=== PATIENT | male | born 1995 | race Caucasian/White ===

== ENCOUNTER 2022-02-03 03:57 | Emergency (ER) | payer OTHER, SELFPAY ==
[2022-02-03 04:11] VITALS: BP 135/80; PULSE 86; RESP 18; TEMP 36.6; O2SAT 97
--- NOTE | 2022-02-03 04:21 | DI.RAD.S_ITS ---
PROCEDURE: XR FINGER RT MIN 2V INDICATIONS: cut tip of thumb off on chain TECHNIQUE: AP hand, 2 views of the right 1st finger(s) acquired. COMPARISON: None. FINDINGS: Bones: No fractures or dislocations. No suspicious bony lesions. No radiodense foreign body. Soft tissues: No suspicious soft tissue calcifications. IMPRESSION: No fracture. No osseous lesion. If symptoms and/or clinical suspicion for pathology persists, further assessment with repeat radiographs (7-10 days) or advanced imaging (e.g. CT, MRI or bone scan) should be considered. Dictated by: Pat Mccord MD, PhD on 02/03/2022 at 8:31 Approved by: Pat Mccord MD, PhD on 02/03/2022 at 8:31
[2022-02-03] MEDS: TET,DIPH,PERTUSS(ACELL),VAC/PF 0.5 ML SYRINGE IM (04:43)
--- NOTE | 2022-02-03 04:57 | ED.WOUNDLAC ---
HPI - Wound/Laceration General Chief Complaint: Wound/Laceration Stated Complaint: cut right thumb Time Seen by Provider: 02/03/22 04:52 Source: patient Mode of arrival: Ambulatory History of Present Illness HPI narrative: Patient here for right thumb injury at work. Patient cut right thumb caught in a chain and sprocket device. Has partial amputation the distal quarter the fingernail and thumb pad. Denies any other injuries. Tetanus shot given here. Related Data Previous Rx's Medication Instructions Recorded cephalexin 500 mg capsule 500 mg PO QID #20 caps 02/03/22 hydrocodone 5 mg-acetaminophen 325 1 tab PO Q6H PRN pain #10 tabs 02/03/22 mg tablet ibuprofen 600 mg tablet 600 mg PO Q6H PRN fever or pain 02/03/22 #24 tabs ondansetron 4 mg disintegrating 4 mg PO Q8H PRN nausea and 02/03/22 tablet vomiting #10 tabs Allergies Allergy/AdvReac Type Severity Reaction Status Date / Time No Known Drug Allergies Allergy Verified 02/03/22 04:23 Review of Systems Review of Systems Narrative: GENERAL: Denies chills, fatigue, malaise, fever, sweats. HEENT: Denies sinus pain, ear pain, sore throat RESPIRATORY: Denies dyspnea, cough CARDIOVASCULAR: Denies chest pain, palpitations GASTROINTESTINAL: Denies nausea, vomiting, abdominal pain : Denies dysuria, frequency, hematuria MUSCULOSKELETAL: Positive for muscle or bony pain SKIN: Denies rash, skin lesions NEUROLOGIC: Denies weakness, numbness ROS Unobtainable: All systems reviewed & are unremarkable except as noted in HPI and below Patient History Social History Smoking Status: Never smoker Smoking Status: Never smoker alcohol intake frequency: a few times a week Substance Use Type: does not use Exam Narrative Exam Narrative: GENERAL: in no distress, not toxic not dyspneic HEAD: Normocephalic. EYES: Pupils equal round EXTREMITIES: Examination of right hand. There is a defect/ deformity to the distal quarter of the thumbnail and thumb pad. Bleeding is controlled. Base visualized. No foreign body. No bony exposure seen. No active bleeding. Nontender MCP and IP joints. NEURO: AOx4. SKIN: Warm and dry PSYCH: Not anxious, is cooperative Initial Vital Signs Initial Vital Signs: Vital Signs Temperature 98 F 02/03/22 04:11 Pulse Rate 86 02/03/22 04:11 Respiratory Rate 18 02/03/22 04:11 Blood Pressure 135/80 02/03/22 04:11 Pulse Oximetry 97 02/03/22 04:11 Oxygen Delivery Method 02/03/22 04:11 Course Course Course Narrative: No new issues during course of stay. Orders Ordered: Discontinued Medications Cephalexin HCl (Cephalexin 250 Mg Capsule) 500 mg PO NOW ONE Stop: 02/03/22 05:03 Last Admin: 02/03/22 05:12 Dose: 500 mg Documented By: TED Diphtheria/Tetanus/Acell Pertussis (Tet,Diph,Pertuss(Acell),Vac/Pf 0.5 Ml Syringe) 0.5 ml IM .ONCE ONE Stop: 02/03/22 04:23 Last Admin: 02/03/22 04:43 Dose: 0.5 ml Documented By: TED Reevaluation(s) Reevaluation #1: Pain is controlled. Reviewed with patient results of x-rays. wound is not amenable to suturing, essentially has partial amputation. Time: 05:01 Vital Signs Vital signs: Vital Signs - 8 hr 02/03/22 04:11 Temperature 98 F Pulse Rate 86 Respiratory Rate 18 Blood Pressure 135/80 Pulse Oximetry 97 Oxygen Delivery Method Room Air MDM - Wound/Laceration Differential Diagnosis Differential diagnosis: Likely laceration, avulsion of skin and other ( Finger fracture) Imaging Data Extremity x-ray #1: My Impression: No acute bony injury of the thumb. There is soft tissue defect at the distal finger pad Radiologist's Impression: read by overnight radiologist impression laceration of the distal aspect of the 1st digit without fracture or foreign body. MDM Narrative Medical decision making narrative: appropriate for discharge home. Patient essentially has partial amputation of the thumb. L and I form not used because self-insured. the APF form are completed. Pain is controlled. Antibiotics started in the department. Appropriate for prescribed pain medication for severe degree of injury Discharge Plan Departure Patient Disposition: Home Clinical Impression: Avulsion of skin of right thumb Instructions: DI for Traumatic Amputation Activity Restrictions/Additional Instructions: call provided orthopedic office today for making appointment next week for evaluation of your thumb wound. Change dressing daily with warm soap and water and apply thin layer of Topical antibiotic and nonadherent dressing. may shower but no submersion of thumb under water. Return if worse if any questions or concerns. Prescriptions: New hydrocodone-acetaminophen 5-325 mg tablet 1 tab PO Q6H PRN (Reason: pain) Qty: 10 0RF cephalexin 500 mg capsule 500 mg PO QID Qty: 20 0RF ibuprofen 600 mg tablet 600 mg PO Q6H PRN (Reason: fever or pain) Qty: 24 0RF ondansetron 4 mg tablet,disintegrating 4 mg PO Q8H PRN (Reason: nausea and vomiting) Qty: 10 0RF Referrals: Charlene Martin MD [Physician] - Visit Report Forms: Patient Portal/API
[2022-02-03] MEDS: cephALEXin 250 MG CAPSULE 500 MG PO (05:12)
--- NOTE | 2022-02-03 05:55 | PC.NURSE ---
bacitracin to wound before dressing,bleeding controlled.
[2022-02-03 05:56] VITALS: BP 129/79; PULSE 78; RESP 18; O2SAT 99
== END 2022-02-03 05:57 | disposition home or self-care (01) ==
PROVIDERS: Emergency Provider Emergency Medicine
DX: S68.021A Partial traumatic metacarpophalangeal amputation of right thumb, initial encounter (principal); W45.8XXA Other foreign body or object entering through skin, initial encounter; Y99.0 Civilian activity done for income or pay; Z23 Encounter for immunization
CPT/HCPCS: 73140; 90471; 99283; 99284; 90715